=== PATIENT | male | born 1955 | race African-American/Black ===

== ENCOUNTER 2016-06-26 08:27 | Emergency (ER) | payer OTHER ==
[2016-06-26 08:36] VITALS: BP 147/93; PULSE 73; TEMP 98; BMI 23.9
[2016-06-26] MEDS ORDERED: IBUPROFEN 600 MG TABLET (FP) PO ONE ×2 (09:02→09:03)
--- NOTE | 2016-06-26 09:09 | PDOC ---
History of Present Illness - General Chief Complaint: Sore Throat Stated Complaint: EMPLOYEE, COLD SYMPTOMS Time Seen by Provider: 06/26/16 08:49 History Source: Patient Exam Limitations: No Limitations - History of Present Illness Initial Comments: 06/26/16 08:53 patient came to emergency department for evaluation of painful nodule to his throat. Patient states was been seen by his PMD and has had an extensive evaluation with testing including lab work and CAT scan ordered for mass to his throat/thyroid. Patient has not received the results of his lab testing, did not talk to his private physician as they're not open at this point , and has not organize the CAT scan for his neck. Patient worked overnight and came to emergency department for evaluation and pain medicine. Patient denies fever, denies any changes in the contour the size of his throat mass, denies any other injury. Timing/Duration: unsure, getting worse Severity: moderate Associated Symptoms: denies: cough, fever/chills, headaches, loss of appetite, malaise Past History - Travel Traveled outside of the country in the last 30 days: No Close contact w/someone who was outside of country & ill: No - Past Medical History Allergies/Adverse Reactions: Allergies Allergy/AdvReac Type Severity Reaction Status Date / Time No Known Allergies Allergy Verified 06/26/16 08:29 Home Medications: Ambulatory Orders Amlodipine Besylate [Norvasc -] 10 mg PO DAILY 12/10/13 Ibuprofen [Motrin] 800 mg PO TID #20 tablet 12/10/13 Meclizine HCl [Antivert -] 25 mg PO TID #20 tablet 12/10/13 Metformin HCl [Glucophage] 1,000 mg PO BID 12/10/13 Diabetes: Yes HTN: Yes - Psycho/Social/Smoking Cessation Hx Anxiety: No Suicidal Ideation: No Smoking History: Never smoked Hx Alcohol Use: No Drug/Substance Use Hx: No Substance Use Type: None Review of Systems - Review of Systems Able to Perform ROS?: Yes Is the patient limited French proficient: Yes Constitutional: Yes: Symptoms Reported, See HPI, Malaise. No: Fever Respiratory: No: Symptoms reported Musculoskeletal: No: Symptoms Reported Integumentary: Yes: Symptoms Reported All Other Systems: Reviewed and Negative *Physical Exam - Vital Signs Last Vital Signs Temp Pulse Resp BP Pulse Ox 98 F 73 19 147/93 98 06/26/16 08:29 06/26/16 08:29 06/26/16 08:29 06/26/16 08:29 06/26/16 08:29 - Physical Exam General Appearance: Yes: Nourished, Appropriately Dressed. No: Apparent Distress HEENT: positive: RANJIT, Normal ENT Inspection, TMs Normal, Pharynx Normal (no erythema redness or exudate), Other (has a large firm and tender mass to the left aspect of his thyroid with nodular palpation. Patient states has been present for a few weeks and is same as previously evaluated by physician) Neck: positive: Lymphadenopathy (R), Lymphadenopathy (L), Thyromegaly Respiratory/Chest: positive: Lungs Clear, Normal Breath Sounds Gastrointestinal/Abdominal: positive: Soft. negative: Tender Extremity: positive: Normal Capillary Refill, Normal Inspection, Normal Range of Motion Integumentary: positive: Normal Color, Dry, Warm, Pale Neurologic: positive: windows architect II-XII NML intact, Fully Oriented, Alert, Normal Mood/ Affect, Normal Response, Motor Strength 5/5 *DC/Admit/Observation/Transfer Diagnosis at time of Disposition: Thyroid nodule - Discharge Dispostion Disposition: HOME Condition at time of disposition: Stable Admit: No - Referrals Referrals: Dorinda Feldman MD [Primary Care Provider] - Tyron Ramey [Staff Physician] - - Patient Instructions Printed Discharge Instructions: DI for Hyperthyroidism Additional Instructions: Call for appointment and see private physician who has ordered studies and waiting for lab results. Obtain CAT scan this week and follow up with those same physician's as instructed. May use 2 tablets of 200 mg ibuprofen/Advil every 6 hours as needed for pain - Post Discharge Activity Work/School Note: Back to Work
== END 2016-06-26 09:21 | disposition home or self-care (01) ==
LOC: JER 08:27 → JERFT 08:27
DX: E04.1 Nontoxic single thyroid nodule (principal)
CPT/HCPCS: 99281-25